=== PATIENT | female | born 1980 | race Caucasian/White ===

== ENCOUNTER 2017-03-19 17:11 | Emergency (ER) | payer OTHER ==
[~2017-03-19] VITALS: Ht 160 cm; Wt 52.2 kg
[2017-03-19 17:14] VITALS: BP_SYST 140
--- NOTE | 2017-03-19 17:17 | NUR ---
Patient to ER bed H1 to gown for evaluation. Side rails up. Report given to Osiris
--- NOTE | 2017-03-19 17:25 | NUR ---
Patient is stable. Patient states that she took an amoxicillin tablet today and it is stuck in her throught. Denies nausea, vomiting or difficulty breathing. Patient is sitting up in bed spitting into a cup. Pain 2/. No other complaints/injuries per patient or noted.
--- NOTE | 2017-03-19 18:10 | NUR ---
YAN Oliver at bedside examining patient.
[2017-03-19] MEDS ORDERED: NACL 0.9% 1,000 ML IV ONE (18:15)
[2017-03-19] MEDS ORDERED: ONDANSETRON HCL 4 MG/2 ML VIAL IVP ONE (18:15)
[2017-03-19] MEDS ORDERED: LORazepam 2 MG/ML VIAL IV ONE (18:15)
[2017-03-19] MEDS ORDERED: GLUCAGON,HUMAN RECOMBINANT 1 MG VIAL IVP ONE (18:15)
[2017-03-19] MEDS ORDERED: DEXAMETHASONE SOD PHOSPHATE 10 MG/ML VIAL IVP ONE (18:15)
[2017-03-19] MEDS ORDERED: LORazepam 2 MG/ML VIAL (FOR ER USE) ONE (18:47)
--- NOTE | 2017-03-19 19:56 | NUR ---
patient off unit to radiology
--- NOTE | 2017-03-19 20:11 | NUR ---
Patient returned from radiology. States that she is feeling better. Will wait for CT report.
--- NOTE | 2017-03-19 20:30 | NUR ---
Patient given written and verbal discharge instructions and verbalizes understanding. ER MD discussed with patient the results and treatment provided. Patient in stable condition. ID arm band removed. IV catheter removed intact and dressing applied, no active bleeding. Patient educated on pain management and to follow up with PMD in 48 hours and follow up with GI for endoscopy. Pain Scale 0/10 Opportunity for questions provided and answered.
[2017-03-19 20:36] VITALS: BP_SYST 140
== END 2017-03-19 20:36 | disposition home or self-care (01) ==
LOC: SED 17:11
DX: T18.108A Unspecified foreign body in esophagus causing other injury, initial encounter (principal); X58.XXXA Exposure to other specified factors, initial encounter; Y93.89 Activity, other specified; Y99.8 Other external cause status; Y92.89 Other specified places as the place of occurrence of the external cause
CPT/HCPCS: 70490; 71020; 81025; 96361; 96374; 96375; 99284; J1100; J1610; J2060; J2405; J7030